=== PATIENT | female | born 1955 | race Caucasian/White ===

== ENCOUNTER → 2021-12-02 | Outpatient (CLI) | payer MEDICARE, OTHER ==
[~2021-12-02] MED LIST: AMARYL4 MG PO; ASPIRIN EC81 MG PO; CARAFATE1 GM/10 ML PO; FENOFIBRATE54 MG PO; FIBERCON625 MG PO; GLUCOPHAGE1000 MG PO; HYDROCHLOROTHIA25 MG PO; JANUVIA100 MG PO; NORVASC 5 MG TAB5 MG PO; PANTOPRAZOLE SO40 MG PO; THERAGRAN M TAB1 EA PO; TYLENOL 8 HOUR650 MG PO; VITAMIN D2000 UNI1 PO; ZESTRIL40 MG PO; ZOCOR20 MG PO
== END ==
LOC: KOH-I 13:27
DX: M25.50 Pain in unspecified joint (principal); M17.0 Bilateral primary osteoarthritis of knee; M25.461 Effusion, right knee
CPT/HCPCS: 73562

== ENCOUNTER → 2021-12-17 | Outpatient (CLI) | payer MEDICARE, OTHER ==
[~2021-12-17] VITALS: Ht 162.6 cm; Wt 132.9 kg
== END ==
LOC: OPSV 12:37
DX: D64.9 Anemia, unspecified (principal)
CPT/HCPCS: 96365; J1756

== ENCOUNTER → 2021-12-31 | Outpatient (CLI) | payer MEDICARE, OTHER ==
[~2021-12-31] VITALS: Ht 162.6 cm; Wt 132.9 kg
== END ==
LOC: OPSV 09:51
DX: Z53.9 Procedure and treatment not carried out, unspecified reason (principal)
CPT/HCPCS: 96365; J1756

== ENCOUNTER → 2022-01-02 | Outpatient (CLI) | payer MEDICARE, OTHER ==
[~2022-01-02] VITALS: Ht 162.6 cm; Wt 132.9 kg
== END ==
LOC: EXRD 08:00 → OPSV 08:17
DX: I10 Essential (primary) hypertension (principal); N28.1 Cyst of kidney, acquired; R94.4 Abnormal results of kidney function studies
CPT/HCPCS: ECHO; 93306; 93975; 96365; J1756

== ENCOUNTER → 2022-01-05 | Outpatient (CLI) | payer MEDICARE, OTHER ==
[~2022-01-05] VITALS: Ht 162.6 cm; Wt 132.9 kg
[2022-01-05 10:27] LABS: HEMOGLOBIN 10.1 gm/dl (12.3-15.3); RED BLOOD COUNT 4.75 M/UL (4.00-5.10); WHITE BLOOD COUNT 9.6 K/UL (4.5-11.0)
[2022-01-06 08:14] LABS: IRON BIND.CAP.(TIBC) 294 ug/dL (250-450); IRON SATURATION 7 % (15-55); IRON, SERUM 21 ug/dL (27-139); UIBC 273 ug/dL (118-369)
== END ==
LOC: OPSV 09:53
PROVIDERS: Nurse Practitioner Primary Care
DX: Z53.8 Procedure and treatment not carried out for other reasons (principal)
CPT/HCPCS: 83540; 83550; 85027; 96365; J1756

== ENCOUNTER → 2022-01-07 | Outpatient (CLI) | payer MEDICARE, OTHER | LOC: OPSV 12-29 10:00 | DX: D64.9 Anemia, unspecified (principal) | CPT/HCPCS: 96365; J1756 ==